=== PATIENT | male | born 1950 | race African-American/Black ===

== ENCOUNTER 2024-05-20 23:47 | Inpatient (IN) | payer OTHER ==
[2024-05-21] MEDS ORDERED: Acetaminophen 650 MG Suppository PR PRN (00:42)
[2024-05-21] MEDS ORDERED: Ondansetron ODT 4 MG TAB PO PRN (00:42)
[2024-05-21] MEDS ORDERED: Ondansetron PF 4 MG/2 ML Vial IVP PRN (00:42)
[2024-05-21] MEDS ORDERED: Acetaminophen 650 MG/20.3 ML UDCUP PO PRN (00:42)
[2024-05-21] MEDS ORDERED: Nitroglycerin 0.4 MG TAB (25 Tab Bottle) SL PRN (02:26)
[2024-05-21] MEDS ORDERED: Glucagon 1 MG/ML KIT IM PRN (02:34)
[2024-05-21] MEDS ORDERED: Dextrose 50% Abboject 50 ML SYRINGE SLOW IVP PRN (02:34)
[2024-05-21] MEDS ORDERED: Dextrose 5% in Water 1,000 ML IV PRN (02:34)
[2024-05-21] MEDS: HYDROcodone/Acetaminophen 5/325 mg Tablet PO PRN (03:09)
[2024-05-21 05:27] LABS: #Basophils 0.03 10x3/uL (0.0-0.2); %Basophils 0.5 % (0.0-1.0); %Eosinophils 2.1 % (0.0-10.0); %Lymphocytes 12.5 % (21.0-51.0); %Monocytes 14.5 % (0.0-10.0); %Neutrophils 70.1 % (42.0-75.0); Hematocrit 31.7 % (42.0-52.0); Hemoglobin 9.5 g/dL (14.0-18.0); Mean Corpuscular Hemoglobin 23.6 pg (27.0-31.0); Mean Corpuscular Volume 78.7 fL (78.0-98.0); Mean Platelet Volume 10.2 fL (7.4-10.4); Platelet Count 287 10x3/uL (130-400); Red Blood Cell (RBC) Count 4.03 mill/uL (4.70-6.10)
[2024-05-21 05:44] LABS: ALT (SGPT) 7 U/L (8-55); AST (SGOT) 11 U/L (5-34); Albumin 3.4 g/dL (3.4-4.8); Alkaline Phosphatase 37 U/L (40-110); Anion Gap 15 mmol/L (10-20); BUN (Urea Nitrogen) 41 mg/dL (8.4-25.7); Bilirubin, Total 0.3 mg/dL (0.2-1.2); Calc. Creatinine Clearance 46 mL/min (70-130); Calcium 9.2 mg/dL (7.8-10.44); Carbon Dioxide 21 mmol/L (23-31); Chloride 108 mmol/L (98-107); Estimated GFR 46; Globulin 3.4 g/dL (2.4-3.5); Glucose 106 mg/dL (83-110); Potassium 4.7 mmol/L (3.5-5.1); Protein, Total 6.8 g/dL (5.8-8.1); Sodium 139 mmol/L (136-145)
[2024-05-21 06:40] LABS: Hemoglobin A1c 7.2 % (4.0-6.0)
[2024-05-21] MEDS ORDERED: Famotidine 20 MG TAB PO SCH (09:00)
[2024-05-21] MEDS: Insulin Regular, Human 100 UNIT/ML 10 ML VIAL SC SCH (10:23)
[2024-05-21] MEDS: Isosorbide Mononitrate 60 MG ER.TAB PO SCH (10:23)
[2024-05-21] MEDS: Docusate 100 MG CAP PO SCH (10:24)
[2024-05-21] MEDS: Gabapentin 300 MG CAP PO SCH (10:24)
[2024-05-21] MEDS: Aspirin 81 mg Enteric Coated Tablet PO SCH (10:24)
[2024-05-21] MEDS: Furosemide 40 MG TAB PO SCH (10:24)
[2024-05-21] MEDS: Lisinopril 2.5 MG TAB PO SCH (10:25)
[2024-05-21] MEDS: Carvedilol 25 MG TAB PO SCH (10:25)
[2024-05-21] MEDS: Amlodipine 10 MG TAB PO SCH (10:25)
[2024-05-21] MEDS: Famotidine/PF 20 mg/2ml Vial SLOW IVP SCH (10:26)
[2024-05-21] MEDS: Famotidine 20 MG TAB PO SCH (10:26)
[2024-05-21] MEDS: Cefepime 1 GM in Sodium Chloride 0.9% 100 ML IVPB SCH (13:23)
[2024-05-21] MEDS: Cefepime 1 GM VIAL ONE (13:24)
[2024-05-21] MEDS: Atorvastatin Calcium 40 MG TAB PO SCH (19:48)
[2024-05-21] MEDS: Fenofibrate 48 MG TAB PO SCH (19:49)
[2024-05-21] MEDS: Terazosin HCl 5 MG CAP PO SCH (19:49)
[2024-05-21] MEDS: metroNIDAZOLE 250 MG TAB PO SCH (19:51)
[2024-05-21] MEDS: Latanoprost 0.005% Ophth Soln 2.5 ml Bottle EA EYE SCH (19:55)
[2024-05-22 08:47] LABS: #Basophils Less than 0.03 10x3/uL (0.0-0.2); %Basophils 0.2 % (0.0-1.0); %Eosinophils 1.7 % (0.0-10.0); %Lymphocytes 13.8 % (21.0-51.0); %Monocytes 15.4 % (0.0-10.0); %Neutrophils 68.7 % (42.0-75.0); Hematocrit 29.2 % (42.0-52.0); Hemoglobin 8.9 g/dL (14.0-18.0); Mean Corpuscular HGB CONC 30.5 g/dL (32.0-36.0); Mean Corpuscular Volume 78.7 fL (78.0-98.0); Mean Platelet Volume 9.5 fL (7.4-10.4); Platelet Count 260 10x3/uL (130-400); RBC Distribution Width 15.9 % (11.5-14.5); Red Blood Cell (RBC) Count 3.71 mill/uL (4.70-6.10)
[2024-05-22] MEDS: Morphine 2 MG/ML VIAL SLOW IVP PRN (08:50)
[2024-05-22 09:05] LABS: Anion Gap 12 mmol/L (10-20); BUN (Urea Nitrogen) 40 mg/dL (8.4-25.7); Calc. Creatinine Clearance 39 mL/min (70-130); Calcium 9.3 mg/dL (7.8-10.44); Carbon Dioxide 24 mmol/L (23-31); Chloride 105 mmol/L (98-107); Estimated GFR 38; Glucose 116 mg/dL (83-110); Potassium 4.2 mmol/L (3.5-5.1); Sodium 137 mmol/L (136-145)
[2024-05-22] MEDS: Insulin Lispro 100 UNIT/ML 10 ML VIAL SC PRN (11:58)
[2024-05-22] MEDS: Gabapentin 100 MG CAP PO SCH (23:39)
[2024-05-23 04:28] LABS: #Basophils Less than 0.03 10x3/uL (0.0-0.2); %Basophils 0.3 % (0.0-1.0); %Eosinophils 2.3 % (0.0-10.0); %Lymphocytes 12.8 % (21.0-51.0); %Monocytes 13.4 % (0.0-10.0); %Neutrophils 70.8 % (42.0-75.0); Hematocrit 27.6 % (42.0-52.0); Hemoglobin 8.3 g/dL (14.0-18.0); Mean Corpuscular HGB CONC 30.1 g/dL (32.0-36.0); Mean Corpuscular Hemoglobin 23.2 pg (27.0-31.0); Mean Corpuscular Volume 77.1 fL (78.0-98.0); Mean Platelet Volume 9.2 fL (7.4-10.4); Platelet Count 243 10x3/uL (130-400); RBC Distribution Width 15.9 % (11.5-14.5); Red Blood Cell (RBC) Count 3.58 mill/uL (4.70-6.10)
[2024-05-23 06:38] LABS: Anion Gap 16 mmol/L (10-20); BUN (Urea Nitrogen) 48 mg/dL (8.4-25.7); Calc. Creatinine Clearance 34 mL/min (70-130); Calcium 9.1 mg/dL (7.8-10.44); Carbon Dioxide 22 mmol/L (23-31); Chloride 104 mmol/L (98-107); Estimated GFR 31; Glucose 118 mg/dL (83-110); Potassium 4.4 mmol/L (3.5-5.1); Sodium 138 mmol/L (136-145)
[2024-05-23 06:39] LABS: CRP,High Sensitivity (Inhouse) 2.98 mg/dL (< or = 0.5)
[2024-05-23] MEDS: Insulin Lispro 100 UNIT/ML 10 ML VIAL SC PRN (21:43)
[2024-05-24 04:13] LABS: #Basophils Less than 0.03 10x3/uL (0.0-0.2); %Basophils 0.3 % (0.0-1.0); %Eosinophils 2.7 % (0.0-10.0); %Lymphocytes 11.5 % (21.0-51.0); %Monocytes 14.7 % (0.0-10.0); %Neutrophils 70.5 % (42.0-75.0); Hematocrit 29.3 % (42.0-52.0); Hemoglobin 8.8 g/dL (14.0-18.0); Mean Corpuscular Hemoglobin 23.2 pg (27.0-31.0); Mean Corpuscular Volume 77.1 fL (78.0-98.0); Mean Platelet Volume 9.8 fL (7.4-10.4); Platelet Count 260 10x3/uL (130-400); RBC Distribution Width 15.9 % (11.5-14.5)
[2024-05-24 04:32] LABS: Anion Gap 15 mmol/L (10-20); BUN (Urea Nitrogen) 53 mg/dL (8.4-25.7); Calc. Creatinine Clearance 32 mL/min (70-130); Calcium 9.3 mg/dL (7.8-10.44); Carbon Dioxide 25 mmol/L (23-31); Chloride 103 mmol/L (98-107); Estimated GFR 29; Glucose 110 mg/dL (83-110); Potassium 4.4 mmol/L (3.5-5.1); Sodium 139 mmol/L (136-145)
[2024-05-24] MEDS: Morphine 4 MG/ML VIAL SLOW IVP PRN (13:27)
[2024-05-24] MEDS: HYDROcodone/Acetaminophen 10/325 mg Tablet PO PRN (17:12)
[2024-05-25 04:02] LABS: #Basophils Less than 0.03 10x3/uL (0.0-0.2); %Basophils 0.3 % (0.0-1.0); %Lymphocytes 14.5 % (21.0-51.0); %Monocytes 14.5 % (0.0-10.0); %Neutrophils 67.4 % (42.0-75.0); Hematocrit 28.3 % (42.0-52.0); Hemoglobin 8.6 g/dL (14.0-18.0); Mean Corpuscular HGB CONC 30.4 g/dL (32.0-36.0); Mean Corpuscular Hemoglobin 24.1 pg (27.0-31.0); Mean Corpuscular Volume 79.3 fL (78.0-98.0); Platelet Count 244 10x3/uL (130-400); RBC Distribution Width 15.9 % (11.5-14.5); Red Blood Cell (RBC) Count 3.57 mill/uL (4.70-6.10)
[2024-05-25 04:28] LABS: Anion Gap 15 mmol/L (10-20); BUN (Urea Nitrogen) 58 mg/dL (8.4-25.7); Calc. Creatinine Clearance 31 mL/min (70-130); Calcium 9.2 mg/dL (7.8-10.44); Carbon Dioxide 25 mmol/L (23-31); Chloride 102 mmol/L (98-107); Estimated GFR 27; Glucose 133 mg/dL (83-110); Potassium 4.6 mmol/L (3.5-5.1); Sodium 137 mmol/L (136-145)
[2024-05-26] MEDS: Acetaminophen/Codeine 30-300mg Tablet PO PRN (11:31)
[2024-05-27 03:58] LABS: #Basophils 0.03 10x3/uL (0.0-0.2); %Basophils 0.5 % (0.0-1.0); %Eosinophils 3.3 % (0.0-10.0); %Lymphocytes 13.7 % (21.0-51.0); %Monocytes 17.9 % (0.0-10.0); %Neutrophils 64.3 % (42.0-75.0); Hematocrit 29.4 % (42.0-52.0); Hemoglobin 8.8 g/dL (14.0-18.0); Mean Corpuscular HGB CONC 29.9 g/dL (32.0-36.0); Mean Corpuscular Hemoglobin 23.3 pg (27.0-31.0); Mean Platelet Volume 10.4 fL (7.4-10.4); Platelet Count 248 10x3/uL (130-400); RBC Distribution Width 15.9 % (11.5-14.5); Red Blood Cell (RBC) Count 3.77 mill/uL (4.70-6.10)
[2024-05-27 04:12] LABS: INR-International Normal Ratio 1.3; Prothrombin Time 16.5 sec (12.0-14.7)
[2024-05-27 04:21] LABS: Anion Gap 16 mmol/L (10-20); BUN (Urea Nitrogen) 61 mg/dL (8.4-25.7); Calc. Creatinine Clearance 30 mL/min (70-130); Calcium 9.2 mg/dL (7.8-10.44); Carbon Dioxide 27 mmol/L (23-31); Chloride 101 mmol/L (98-107); Estimated GFR 27; Glucose 112 mg/dL (83-110); Potassium 5.3 mmol/L (3.5-5.1); Sodium 139 mmol/L (136-145)
[2024-05-27 07:58] LABS: Magnesium 2.5 mg/dL (1.6-2.6)
[2024-05-27] MEDS ORDERED: Lidocaine 1% (PF) 30 ML VIAL ONE (10:16)
[2024-05-27] MEDS ORDERED: Famotidine/PF 20 mg/2ml Vial ONE (10:32)
[2024-05-27] MEDS ORDERED: Cefepime 1 GM VIAL ONE (10:35)
[2024-05-27] MEDS ORDERED: Sodium Chloride 0.9% 100 ML ONE (10:35)
[2024-05-27] MEDS ORDERED: Midazolam HCl 2 mg/2 ml Vial ONE (10:36)
[2024-05-27] MEDS ORDERED: fentaNYL 50 mcg/mL 1 mL Vial ONE (10:36)
[2024-05-27] MEDS ORDERED: PROPOFOL 20 ML ONE ×2 (10:36→11:29)
[2024-05-27] MEDS ORDERED: Ketamine In 0.9 % NaCl 50 MG/5 ML SYRINGE ONE (10:38)
[2024-05-27] MEDS ORDERED: Glycopyrrolate 0.2 MG/ML 5 ML SYRINGE ONE (10:41)
[2024-05-27] MEDS ORDERED: Bupivacaine PF 0.5% 30 ML VIAL ONE (11:05)
[2024-05-27] MEDS ORDERED: Ondansetron PF 4 MG/2 ML Vial ONE (11:22)
[2024-05-27] MEDS ORDERED: Ondansetron HCl/PF 4 MG/2 ML Vial IVP PRN (12:03)
[2024-05-27] MEDS ORDERED: Promethazine HCl 25 MG/ML VIAL IM PRN (12:03)
[2024-05-27] MEDS: Sodium Polystyrene Sulfonate 15 GM (60 mL) BOT PO SCH (13:40)
[2024-05-28 04:44] LABS: #Basophils 0.03 10x3/uL (0.0-0.2); %Basophils 0.6 % (0.0-1.0); %Eosinophils 3.7 % (0.0-10.0); %Lymphocytes 12.5 % (21.0-51.0); %Monocytes 14.6 % (0.0-10.0); %Neutrophils 68.4 % (42.0-75.0); Hematocrit 31.5 % (42.0-52.0); Hemoglobin 9.4 g/dL (14.0-18.0); Mean Corpuscular HGB CONC 29.8 g/dL (32.0-36.0); Mean Corpuscular Hemoglobin 23.5 pg (27.0-31.0); Mean Corpuscular Volume 78.8 fL (78.0-98.0); Mean Platelet Volume 10.6 fL (7.4-10.4); Platelet Count 210 10x3/uL (130-400); RBC Distribution Width 15.9 % (11.5-14.5)
[2024-05-28 05:47] LABS: Anion Gap 16 mmol/L (10-20); BUN (Urea Nitrogen) 57 mg/dL (8.4-25.7); Calc. Creatinine Clearance 28 mL/min (70-130); Carbon Dioxide 27 mmol/L (23-31); Chloride 102 mmol/L (98-107); Estimated GFR 25; Glucose 129 mg/dL (83-110); Magnesium 2.7 mg/dL (1.6-2.6); Potassium 4.5 mmol/L (3.5-5.1); Sodium 140 mmol/L (136-145)
[2024-05-28] MEDS: Senokot S 8.6-50 MG TAB PO SCH (20:19)
[2024-05-29 04:37] LABS: #Basophils Less than 0.03 10x3/uL (0.0-0.2); %Basophils 0.2 % (0.0-1.0); %Eosinophils 1.6 % (0.0-10.0); %Lymphocytes 5.8 % (21.0-51.0); %Monocytes 13.9 % (0.0-10.0); %Neutrophils 78.1 % (42.0-75.0); Hematocrit 30.1 % (42.0-52.0); Hemoglobin 8.9 g/dL (14.0-18.0); Mean Corpuscular HGB CONC 29.6 g/dL (32.0-36.0); Mean Corpuscular Hemoglobin 23.4 pg (27.0-31.0); Mean Platelet Volume 10.9 fL (7.4-10.4); Platelet Count 221 10x3/uL (130-400); RBC Distribution Width 15.9 % (11.5-14.5); Red Blood Cell (RBC) Count 3.81 mill/uL (4.70-6.10)
[2024-05-29 05:12] LABS: Anion Gap 16 mmol/L (10-20); BUN (Urea Nitrogen) 47 mg/dL (8.4-25.7); Calc. Creatinine Clearance 35 mL/min (70-130); Calcium 9.5 mg/dL (7.8-10.44); Carbon Dioxide 22 mmol/L (23-31); Chloride 103 mmol/L (98-107); Estimated GFR 32; Glucose 108 mg/dL (83-110); Magnesium 2.6 mg/dL (1.6-2.6); Potassium 4.7 mmol/L (3.5-5.1); Sodium 136 mmol/L (136-145)
[2024-05-29] MEDS: Heparin 5,000 UNITS/ML VIAL SC SCH (09:20)
[2024-05-30 04:00] LABS: #Basophils 0.03 10x3/uL (0.0-0.2); %Basophils 0.4 % (0.0-1.0); %Eosinophils 1.2 % (0.0-10.0); %Monocytes 11.6 % (0.0-10.0); %Neutrophils 79.5 % (42.0-75.0); Hematocrit 30.1 % (42.0-52.0); Hemoglobin 9.1 g/dL (14.0-18.0); Mean Corpuscular HGB CONC 30.2 g/dL (32.0-36.0); Mean Corpuscular Hemoglobin 23.9 pg (27.0-31.0); Mean Platelet Volume 9.7 fL (7.4-10.4); Platelet Count 203 10x3/uL (130-400); RBC Distribution Width 15.9 % (11.5-14.5); Red Blood Cell (RBC) Count 3.81 mill/uL (4.70-6.10)
[2024-05-30 04:24] LABS: Anion Gap 13 mmol/L (10-20); BUN (Urea Nitrogen) 46 mg/dL (8.4-25.7); Calc. Creatinine Clearance 39 mL/min (70-130); Calcium 9.3 mg/dL (7.8-10.44); Carbon Dioxide 22 mmol/L (23-31); Chloride 107 mmol/L (98-107); Estimated GFR 36; Glucose 128 mg/dL (83-110); Potassium 4.3 mmol/L (3.5-5.1); Sodium 138 mmol/L (136-145)
[2024-06-01] MEDS: Lactulose 20 GM (30 mL) UDCUP PO PRN (12:56)
[2024-06-01] MEDS: Insulin Lispro 100 UNIT/ML 10 ML VIAL SC PRN (18:48)
[2024-06-01] MEDS: Insulin Glargine 30 UNITS/0.3 ML VIAL SC SCH (21:58)
[2024-06-02 05:50] LABS: #Basophils Less than 0.03 10x3/uL (0.0-0.2); %Basophils 0.3 % (0.0-1.0); %Eosinophils 2.1 % (0.0-10.0); %Lymphocytes 7.7 % (21.0-51.0); %Monocytes 12.2 % (0.0-10.0); Hematocrit 28.5 % (42.0-52.0); Hemoglobin 8.5 g/dL (14.0-18.0); Mean Corpuscular HGB CONC 29.8 g/dL (32.0-36.0); Mean Corpuscular Hemoglobin 23.7 pg (27.0-31.0); Mean Corpuscular Volume 79.4 fL (78.0-98.0); Mean Platelet Volume 10.3 fL (7.4-10.4); Platelet Count 249 10x3/uL (130-400); RBC Distribution Width 15.9 % (11.5-14.5); Red Blood Cell (RBC) Count 3.59 mill/uL (4.70-6.10)
[2024-06-02 06:07] LABS: Anion Gap 15 mmol/L (10-20); BUN (Urea Nitrogen) 36 mg/dL (8.4-25.7); Calc. Creatinine Clearance 44 mL/min (70-130); Calcium 9.3 mg/dL (7.8-10.44); Carbon Dioxide 24 mmol/L (23-31); Chloride 108 mmol/L (98-107); Estimated GFR 43; Glucose 120 mg/dL (83-110); Potassium 4.8 mmol/L (3.5-5.1); Sodium 142 mmol/L (136-145)
[2024-06-02] MEDS: Morphine 2 MG/ML VIAL SLOW IVP SCH (13:30)
[2024-06-02] MEDS: Albuterol 200 PUFF INH INH PRN (16:05)
[2024-06-02] MEDS ORDERED: Ipratropium/Albuterol 3 ML NEB NEB PRN (16:17)
[2024-06-02] MEDS: Ipratropium/Albuterol 3 ML NEB NEB SCH ×2 (16:26→19:12)
[2024-06-02 16:48] LABS: Actual Bicarbonate (HCO3a) 22.8 mEq/L (22-28); Base Excess (BEa) -4.6 mEq/L (-2.0 to +3.0); CO2 Tension 52.8 mmHg (35.0-45.0); Calcium, Ionized (arterial) 1.19 mmol/L (1.12-1.30); Carboxyhemoglobin (COHb) 0.3 gm% (0.0-3.0); Hematocrit-ABG 33 % (42.0-52.0); Hemoglobin (Hb) 11.3 g/dL (14.0-18.0); pH, Arterial 7.253 (7.35-7.45)
[2024-06-02] MEDS: Etomidate 40 MG (20 mL) VIAL IVP SCH (16:48)
[2024-06-02 16:49] LABS: O2 Tension (PaO2), arterial 55.2 mmHg (> 70.0); Puncture Site LRA
[2024-06-02] MEDS ORDERED: Ventilator Sedation Protocol 1 EACH FS SCH (16:56)
[2024-06-02] MEDS: Lorazepam 2 MG/ML VIAL SLOW IVP PRN (16:57)
[2024-06-02] MEDS ORDERED: DISCONTINUE PREVIOUS NARCOTIC PAIN MEDICATIONS AND BENZODIAZEPINES FS SCH (17:15)
[2024-06-02] MEDS ORDERED: Fentanyl BOLUS 250 ML IVPB PRN (17:15)
[2024-06-02] MEDS ORDERED: Morphine 2 MG/ML VIAL SLOW IVP PRN (17:15)
[2024-06-02] MEDS ORDERED: Propofol BOLUS 1,000 MG/100 ML VIAL IV PRN (17:15)
[2024-06-02 17:45] LABS: Actual Bicarbonate (HCO3a) 22.2 mEq/L (22-28); Base Excess (BEa) -2.7 mEq/L (-2.0 to +3.0); CO2 Tension 38.7 mmHg (35.0-45.0); Calcium, Ionized (arterial) 1.11 mmol/L (1.12-1.30); Carboxyhemoglobin (COHb) 0.8 gm% (0.0-3.0); Hematocrit-ABG 28 % (42.0-52.0); Hemoglobin (Hb) 9.4 g/dL (14.0-18.0); O2 Tension (PaO2), arterial 71.2 mmHg (> 70.0); Potassium - ABG Lab 4.97 mmol/L (3.70-5.30); Puncture Site RRA; pH, Arterial 7.376 (7.35-7.45)
[2024-06-02 17:46] LABS: ALV-art Gradient 236.925 mmHg (0-20)
[2024-06-02] MEDS: Propofol 1,000 MG/100 ML VIAL IV ONE (17:52)
[2024-06-02] MEDS: Lorazepam 2 MG/ML VIAL ONE (17:52)
[2024-06-02] MEDS: Propofol 1,000 MG/100 ML VIAL IV PRN (17:52)
[2024-06-02] MEDS: methylPREDNISolone Sod Succ/PF 125 MG/2 ML VIAL IVP SCH (18:27)
[2024-06-02] MEDS: Furosemide 40 MG (4 mL) VIAL SLOW IVP SCH (18:29)
[2024-06-02 18:35] LABS: Troponin I 0.029 ng/mL (< 0.028)
[2024-06-02] MEDS: Fentanyl CADD 100 ML IV SCH (19:00)
[2024-06-02] MEDS ORDERED: Ipratropium/Albuterol 3 ML NEB NEB SCH (19:00)
[2024-06-02 20:29] LABS: Troponin I 0.077 ng/mL (< 0.028)
[2024-06-03] MEDS: methylPREDNISolone Sod Succ 40 MG VIAL IVP SCH (08:32)
[2024-06-03 14:07] LABS: #Basophils Less than 0.03 10x3/uL (0.0-0.2); #Eosinphils Less than 0.03 10x3/uL (0.0-0.7); %Basophils 0.1 % (0.0-1.0); %Lymphocytes 3.2 % (21.0-51.0); %Monocytes 5.7 % (0.0-10.0); %Neutrophils 89.8 % (42.0-75.0); Hemoglobin 8.9 g/dL (14.0-18.0); Mean Corpuscular HGB CONC 30.7 g/dL (32.0-36.0); Mean Corpuscular Hemoglobin 23.3 pg (27.0-31.0); Mean Corpuscular Volume 75.9 fL (78.0-98.0); Platelet Count 286 10x3/uL (130-400); RBC Distribution Width 16.3 % (11.5-14.5); Red Blood Cell (RBC) Count 3.82 mill/uL (4.70-6.10)
[2024-06-03 14:16] LABS: ALT (SGPT) Less than 5 U/L (8-55); AST (SGOT) 6 U/L (5-34); Albumin 2.7 g/dL (3.4-4.8); Alkaline Phosphatase 32 U/L (40-110); Anion Gap 14 mmol/L (10-20); BUN (Urea Nitrogen) 46 mg/dL (8.4-25.7); Bilirubin, Total 0.4 mg/dL (0.2-1.2); Calc. Creatinine Clearance 46 mL/min (70-130); Calcium 8.9 mg/dL (7.8-10.44); Carbon Dioxide 19 mmol/L (23-31); Chloride 111 mmol/L (98-107); Estimated GFR 45; Globulin 3.5 g/dL (2.4-3.5); Glucose 258 mg/dL (83-110); Potassium 4.2 mmol/L (3.5-5.1); Protein, Total 6.2 g/dL (5.8-8.1); Sodium 140 mmol/L (136-145)
[2024-06-03] MEDS ORDERED: Ondansetron ODT 4 MG TAB PER TUBE PRN (21:05)
[2024-06-03] MEDS ORDERED: Acetaminophen 650 MG/20.3 ML UDCUP PER TUBE PRN (21:05)
[2024-06-03] MEDS ORDERED: Lactulose 20 GM (30 mL) UDCUP PER TUBE PRN (21:10)
[2024-06-03] MEDS: Atorvastatin Calcium 40 MG TAB PER TUBE SCH (21:34)
[2024-06-03] MEDS: Senokot S 8.6-50 MG TAB PER TUBE SCH (21:34)
[2024-06-03] MEDS: Fenofibrate 48 MG TAB PER TUBE SCH (21:34)
[2024-06-03] MEDS: Gabapentin 300 MG CAP PER TUBE SCH (21:34)
[2024-06-03] MEDS: Terazosin HCl 5 MG CAP PER TUBE SCH (21:35)
[2024-06-04 06:30] LABS: Anion Gap 20 mmol/L (10-20); BUN (Urea Nitrogen) 44 mg/dL (8.4-25.7); Calc. Creatinine Clearance 44 mL/min (70-130); Calcium 9.1 mg/dL (7.8-10.44); Carbon Dioxide 15 mmol/L (23-31); Chloride 110 mmol/L (98-107); Estimated GFR 50; Glucose 178 mg/dL (83-110); Magnesium 2.6 mg/dL (1.6-2.6); Potassium 4.4 mmol/L (3.5-5.1); Sodium 141 mmol/L (136-145)
[2024-06-04 07:22] LABS: Hematocrit 28.4 % (42.0-52.0); Hemoglobin 8.7 g/dL (14.0-18.0); Mean Corpuscular HGB CONC 30.6 g/dL (32.0-36.0); Mean Corpuscular Hemoglobin 24.2 pg (27.0-31.0); Mean Corpuscular Volume 79.1 fL (78.0-98.0); Mean Platelet Volume 10.5 fL (7.4-10.4); Platelet Count 329 10x3/uL (130-400); RBC Distribution Width 16.6 % (11.5-14.5); Red Blood Cell (RBC) Count 3.59 mill/uL (4.70-6.10)
[2024-06-04] MEDS: Isosorbide Mononitrate 20 MG TAB PER TUBE SCH (08:40)
[2024-06-04] MEDS: Aspirin Chewable 81 MG TAB PER TUBE SCH (08:41)
[2024-06-04] MEDS: Carvedilol 25 MG TAB PER TUBE SCH (08:41)
[2024-06-04] MEDS: Famotidine 20 MG TAB PER TUBE SCH (08:41)
[2024-06-04] MEDS: Amlodipine 10 MG TAB PER TUBE SCH (08:41)
[2024-06-04] MEDS ORDERED: Senokot S 8.6-50 MG TAB PER TUBE SCH (09:00)
[2024-06-04 11:34] LABS: Actual Bicarbonate (HCO3a) 23.4 mEq/L (22-28); Base Excess (BEa) 0.1 mEq/L (-2.0 to +3.0); CO2 Tension 33.3 mmHg (35.0-45.0); Calcium, Ionized (arterial) 1.17 mmol/L (1.12-1.30); Carboxyhemoglobin (COHb) 0.3 gm% (0.0-3.0); Hematocrit-ABG 31 % (42.0-52.0); Hemoglobin (Hb) 10.4 g/dL (14.0-18.0); O2 Tension (PaO2), arterial 89.8 mmHg (> 70.0); Potassium - ABG Lab 4.04 mmol/L (3.70-5.30); pH, Arterial 7.465 (7.35-7.45)
[2024-06-04 11:35] LABS: Puncture Site RRA
[2024-06-04 11:36] LABS: ALV-art Gradient 153.775 mmHg (0-20)
[2024-06-04] MEDS ORDERED: HYDROcodone/Acetaminophen 10/325 mg Tablet PO PRN (13:44)
[2024-06-04] MEDS ORDERED: Ondansetron ODT 4 MG TAB PO PRN (14:18)
[2024-06-04] MEDS ORDERED: Lactulose 20 GM (30 mL) UDCUP PO PRN (14:19)
[2024-06-04] MEDS: HYDROcodone/Acetaminophen 10/325 mg Tablet PO PRN (15:16)
[2024-06-04] MEDS: Gabapentin 300 MG CAP PO SCH (15:16)
[2024-06-04] MEDS: Carvedilol 25 MG TAB PO SCH (16:25)
[2024-06-04] MEDS: Senokot S 8.6-50 MG TAB PO SCH (19:39)
[2024-06-04] MEDS: Isosorbide Mononitrate 20 MG TAB PO SCH (21:18)
[2024-06-04] MEDS: Atorvastatin Calcium 40 MG TAB PO SCH (21:18)
[2024-06-04] MEDS: Fenofibrate 48 MG TAB PO SCH (21:18)
[2024-06-04] MEDS: Terazosin HCl 5 MG CAP PO SCH (21:33)
[2024-06-04] MEDS: Acetaminophen 650 MG/20.3 ML UDCUP PO PRN (23:12)
[2024-06-05 05:57] LABS: Hematocrit 32.1 % (42.0-52.0); Hemoglobin 9.6 g/dL (14.0-18.0); Mean Corpuscular HGB CONC 29.9 g/dL (32.0-36.0); Mean Corpuscular Hemoglobin 23.8 pg (27.0-31.0); Mean Corpuscular Volume 79.7 fL (78.0-98.0); Mean Platelet Volume 10.1 fL (7.4-10.4); Platelet Count 316 10x3/uL (130-400); RBC Distribution Width 16.7 % (11.5-14.5); Red Blood Cell (RBC) Count 4.03 mill/uL (4.70-6.10)
[2024-06-05 06:51] LABS: Anion Gap 14 mmol/L (10-20); BUN (Urea Nitrogen) 42 mg/dL (8.4-25.7); Calc. Creatinine Clearance 52 mL/min (70-130); Carbon Dioxide 20 mmol/L (23-31); Chloride 109 mmol/L (98-107); Estimated GFR 61; Glucose 114 mg/dL (83-110); Potassium 4.1 mmol/L (3.5-5.1); Sodium 139 mmol/L (136-145)
[2024-06-05] MEDS: Amlodipine 10 MG TAB PO SCH (08:38)
[2024-06-05] MEDS: Aspirin Chewable 81 MG TAB PO SCH (08:38)
[2024-06-05] MEDS: Famotidine 20 MG TAB PO SCH (08:38)
[2024-06-05] MEDS: Insulin Glargine 30 UNITS/0.3 ML VIAL SC SCH (20:29)
[2024-06-05] MEDS: Morphine 2 MG/ML VIAL SLOW IVP PRN (23:24)
[2024-06-06 04:37] VITALS: BMI 25.0
[2024-06-06] MEDS: Ferrous Gluconate 324 MG TAB PO SCH (09:26)
[2024-06-07] MEDS: Ferrous Gluconate 324 MG TAB PO SCH (09:11)
[2024-06-08 15:27] VITALS: BMI 25.2
[2024-06-12] MEDS: HYDROcodone/Acetaminophen 10/325 mg Tablet PO PRN (22:06)
[2024-06-14 11:47] VITALS: TEMP 98.1
[2024-06-14 21:03] VITALS: BP 125/68
[2024-06-14] MEDS: HYDROcodone/Acetaminophen 10/325 mg Tablet PO PRN (22:48)
== END 2024-06-14 22:55 | DRG 239 ==
LOC: EEVIPCON 23:47 → 2SE 23:47 → SURG B 06-01 11:55 → CCU 06-02 16:47 → T4-B 06-05 12:58
PROVIDERS: ADMIT Student in an Organized Health Care Education/Training Program; ATTEND Internal Medicine
PROC: 0Y6M0Z9 Detachment at Right Foot, Partial 1st Ray, Open Approach (ICD-10-PCS; principal; 2024-05-27)
PROC: 0Y6M0ZB Detachment at Right Foot, Partial 2nd Ray, Open Approach (ICD-10-PCS; 2024-05-27)
PROC: 0Y6M0ZC Detachment at Right Foot, Partial 3rd Ray, Open Approach (ICD-10-PCS; 2024-05-27)
PROC: 0Y6M0ZD Detachment at Right Foot, Partial 4th Ray, Open Approach (ICD-10-PCS; 2024-05-27)
PROC: 0Y6M0ZF Detachment at Right Foot, Partial 5th Ray, Open Approach (ICD-10-PCS; 2024-05-27)
PROC: 0BH17EZ Insertion of Endotracheal Airway into Trachea, Via Natural or Artificial Opening (ICD-10-PCS; 2024-06-02)
PROC: 4A133R1 Monitoring of Arterial Saturation, Peripheral, Percutaneous Approach (ICD-10-PCS; 2024-06-02)
PROC: 5A1945Z Respiratory Ventilation, 24-96 Consecutive Hours (ICD-10-PCS; 2024-06-02)
DX: E11.52 Type 2 diabetes mellitus with diabetic peripheral angiopathy with gangrene (principal); I50.43 Acute on chronic combined systolic (congestive) and diastolic (congestive) heart failure; J96.01 Acute respiratory failure with hypoxia; I96 Gangrene, not elsewhere classified; N18.4 Chronic kidney disease, stage 4 (severe); C83.30 Diffuse large B-cell lymphoma, unspecified site; I13.0 Hypertensive heart and chronic kidney disease with heart failure and stage 1 through stage 4 chronic kidney disease, or unspecified chronic kidney disease; N17.9 Acute kidney failure, unspecified; C22.8 Malignant neoplasm of liver, primary, unspecified as to type; E87.20 Acidosis, unspecified; L03.115 Cellulitis of right lower limb; E11.621 Type 2 diabetes mellitus with foot ulcer; L97.519 Non-pressure chronic ulcer of other part of right foot with unspecified severity; I70.221 Atherosclerosis of native arteries of extremities with rest pain, right leg; E87.5 Hyperkalemia; L08.9 Local infection of the skin and subcutaneous tissue, unspecified; Z53.9 Procedure and treatment not carried out, unspecified reason; S81.801A Unspecified open wound, right lower leg, initial encounter; E11.22 Type 2 diabetes mellitus with diabetic chronic kidney disease; I25.10 Atherosclerotic heart disease of native coronary artery without angina pectoris; D63.1 Anemia in chronic kidney disease; H40.9 Unspecified glaucoma; I25.5 Ischemic cardiomyopathy; N40.0 Benign prostatic hyperplasia without lower urinary tract symptoms; E11.51 Type 2 diabetes mellitus with diabetic peripheral angiopathy without gangrene; Z89.612 Acquired absence of left leg above knee; Z95.1 Presence of aortocoronary bypass graft; Z79.2 Long term (current) use of antibiotics; Z79.899 Other long term (current) drug therapy; Z79.82 Long term (current) use of aspirin; Z79.4 Long term (current) use of insulin; Z98.890 Other specified postprocedural states
CPT/HCPCS: 36415; 36416; 36600; 71045; 78315; 80048; 80053; 82805; 83036; 83605; 83735; 83880; 84484; 85025; 85027; 85610; 86141; 88305; 88311; 93005; 93010; 93306; 93923; 94002; 94003; 94640; 97139; A9503; J0665; J0692; J1644; J1815; J1940; J2001; J2060; J2250; J2270; J2272; J2405; J2704; J2920; J2930; J3010; J3490; J7620; S0028

== ENCOUNTER 2024-12-29 22:49 | Inpatient (IN) | payer OTHER ==
[2024-12-29] MEDS ORDERED: Magnesium 2 GM/50 ML BAG (IN WATER) ONE (23:04)
[2024-12-29] MEDS ORDERED: methylPREDNISolone Sod Succ/PF 125 MG/2 ML VIAL ONE (23:04)
[2024-12-29 23:17] LABS: Actual Bicarbonate (HCO3a) 15.7 mEq/L (22-28); Analyzer IN Cardio ER; Base Excess (BEa) -10.8 mEq/L (-2.0 to +3.0); CO2 Tension 37.3 mmHg (35.0-45.0); Calcium, Ionized (arterial) 1.14 mmol/L (1.12-1.30); Hematocrit-ABG 38 % (42.0-52.0); Hemoglobin (Hb) 12.8 g/dL (14.0-18.0); O2 Tension (PaO2), arterial 151.8 mmHg (> 70.0); Potassium - ABG Lab 5.07 mmol/L (3.70-5.30); pH, Arterial 7.242 (7.35-7.45)
[2024-12-29 23:22] LABS: Puncture Site Left Radial artery
[2024-12-29 23:23] LABS: ALV-art Gradient 514.575 mmHg (0-20)
[2024-12-29 23:28] LABS: #Basophils 0.04 10x3/uL (0.0-0.2); %Basophils 0.2 % (0.0-1.0); %Eosinophils 0.2 % (0.0-10.0); %Lymphocytes 2.4 % (21.0-51.0); %Monocytes 9.2 % (0.0-10.0); %Neutrophils 86.7 % (42.0-75.0); Hematocrit 39.7 % (42.0-52.0); Hemoglobin 11.8 g/dL (14.0-18.0); Mean Corpuscular HGB CONC 29.7 g/dL (32.0-36.0); Mean Corpuscular Volume 80.9 fL (78.0-98.0); Platelet Count 319 10x3/uL (130-400); RBC Distribution Width 20.1 % (11.5-14.5); Red Blood Cell (RBC) Count 4.91 mill/uL (4.70-6.10)
[2024-12-29] MEDS ORDERED: fentaNYL 50 mcg/mL 1 mL Vial ONE (23:30)
[2024-12-29] MEDS ORDERED: Furosemide 40 MG (4 mL) VIAL ONE (23:30)
[2024-12-29] MEDS ORDERED: Sodium Chloride 0.9% 0 ML ONE (23:30)
[2024-12-29] MEDS ORDERED: Fentanyl CADD 100 ML IV SCH (23:30)
[2024-12-29] MEDS ORDERED: Cefepime 2 GM VIAL ONE (23:30)
[2024-12-29] MEDS ORDERED: Albuterol 2.5 MG (3 mL) NEB ONE (23:31)
[2024-12-29 23:44] LABS: INR-International Normal Ratio 1.4; Prothrombin Time 17.5 sec (12.0-14.7)
[2024-12-29 23:50] LABS: ALT (SGPT) 119 U/L (Less than 45); AST (SGOT) 36 U/L (11-34); Albumin 2.8 g/dL (3.1-4.5); Alkaline Phosphatase 76 U/L (40-110); Anion Gap 16 mmol/L (10-20); BUN (Urea Nitrogen) 51 mg/dL (8.4-25.7); Calc. Creatinine Clearance 0 mL/min (70-130); Calcium 7.4 mg/dL (7.8-10.44); Carbon Dioxide 14 mmol/L (23-31); Chloride 112 mmol/L (98-107); Estimated GFR 52; Globulin 2.8 g/dL (2.4-3.5); Glucose 308 mg/dL (83-110); Potassium 5.5 mmol/L (3.5-5.1); Protein, Total 5.6 g/dL (5.8-8.1); Sodium 136 mmol/L (136-145)
[2024-12-29 23:51] LABS: Acetaminophen Less than 10 mcg/mL (Less than 10); Alcohol Less than 10.0 mg/dL (Less than 10); Salicylate Less than 8.0 mg/dL (Less than 8.0)
[2024-12-29 23:52] LABS: D-Dimer Test 12.91 mcg/mL (0.27-0.43); Troponin I 0.055 ng/mL (< 0.028)
[2024-12-30 00:44] LABS: Amphetamine Not Detected (NotDetected); Barbiturates Screen Not Detected (NotDetected); Benzodiazepine Screen Not Detected (NotDetected); Cocaine Metabolite Screen Not Detected (NotDetected); Methadone Not Detected (NotDetected); Methamphetamine Not Detected (NotDetected); Opiate Screen Not Detected (NotDetected); Oxycodone Screen Not Detected (NotDetected); Phencyclidine (PCP) Not Detected (NotDetected); THC/Cannabinoid Screen Not Detected (NotDetected); Tricyclic Screen Not Detected (NotDetected)
[2024-12-30 00:48] LABS: Bacteria/HPF None Seen HPF (None Seen); Bilirubin Negative (Negative); Blood, Urine 3+ (Negative); CAUTI Indications for Culture Alt mental st,lethar; Clarity Turbid (Clear); Glucose, Urine (Dipstick) 30 mg/dL (Negative); Ketone, Urine Negative (Negative); Leukocyte 75 Leu/uL (Negative); Nitrite Negative (Negative); Protein, Urine (Dipstick) 30 mg/dL (Neg-Trace); RBC/HPF Greater than 50 HPF (0-3); Specific Gravity, Urine 1.012 (1.002-1.036); Squamous Epithelial None Seen HPF (0-3); Urobilinogen Normal mg/dL (Less than 2); WBC/HPF 21-50 HPF (0-3)
[2024-12-30 00:49] LABS: Urine Culture Reflex Yes Yes
[2024-12-30] MEDS ORDERED: Ondansetron PF 4 MG/2 ML Vial IVP PRN (01:00)
[2024-12-30] MEDS ORDERED: Ondansetron ODT 4 MG TAB SL PRN (01:00)
[2024-12-30] MEDS ORDERED: Acetaminophen 325 MG TAB PO PRN (01:00)
[2024-12-30] MEDS ORDERED: Glucagon 1 MG/ML KIT IM PRN (01:20)
[2024-12-30] MEDS ORDERED: Dextrose 50% Abboject 50 ML SYRINGE SLOW IVP PRN (01:20)
[2024-12-30] MEDS ORDERED: Dextrose 5% in Water 1,000 ML IV PRN (01:20)
[2024-12-30] MEDS ORDERED: Propofol BOLUS 1,000 MG/100 ML VIAL IV PRN (01:30)
[2024-12-30] MEDS ORDERED: Morphine 2 MG/ML VIAL SLOW IVP PRN (01:30)
[2024-12-30] MEDS ORDERED: Propofol 1,000 MG/100 ML VIAL IV PRN (01:30)
[2024-12-30] MEDS ORDERED: Fentanyl BOLUS 250 ML IVPB PRN (01:30)
[2024-12-30] MEDS ORDERED: Lorazepam 2 MG/ML VIAL SLOW IVP PRN (01:30)
[2024-12-30] MEDS: Ventilator Sedation Protocol 1 EACH FS ONE (01:42)
[2024-12-30] MEDS ORDERED: Ipratropium/Albuterol 3 ML NEB NEB PRN (01:43)
[2024-12-30] MEDS: Vancomycin 1.5 GRAM/300 ML BAG 1.5 GM in Premix 1 BAG IVPB SCH (01:44)
[2024-12-30] MEDS: Insulin Lispro 100 UNIT/ML 10 ML VIAL SC PRN (02:01)
[2024-12-30 02:19] LABS: #Basophils Less than 0.03 10x3/uL (0.0-0.2); #Eosinophils Less than 0.03 10x3/uL (0.0-0.7); %Basophils 0.1 % (0.0-1.0); %Eosinophils 0.1 % (0.0-10.0); %Lymphocytes 2.3 % (21.0-51.0); %Monocytes 4.9 % (0.0-10.0); %Neutrophils 91.9 % (42.0-75.0); Hematocrit 40.3 % (42.0-52.0); Hemoglobin 11.8 g/dL (14.0-18.0); Mean Corpuscular HGB CONC 29.3 g/dL (32.0-36.0); Mean Corpuscular Hemoglobin 23.8 pg (27.0-31.0); Mean Corpuscular Volume 81.3 fL (78.0-98.0); Mean Platelet Volume 9.7 fL (7.4-10.4); Platelet Count 364 10x3/uL (130-400); RBC Distribution Width 19.9 % (11.5-14.5); Red Blood Cell (RBC) Count 4.96 mill/uL (4.70-6.10)
[2024-12-30] MEDS: Sodium Bicarb 50 mEq/50 ML VIAL IVP SCH ×2 (02:19→05:18)
[2024-12-30 02:41] LABS: Actual Bicarbonate (HCO3a) 19.5 mEq/L (22-28); Base Excess (BEa) -6.4 mEq/L (-2.0 to +3.0); CO2 Tension 40.2 mmHg (35.0-45.0); Calcium, Ionized (arterial) 1.11 mmol/L (1.12-1.30); Carboxyhemoglobin (COHb) 1.2 gm% (0.0-3.0); Hematocrit-ABG 38 % (42.0-52.0); Hemoglobin (Hb) 12.9 g/dL (14.0-18.0); O2 Tension (PaO2), arterial 76.4 mmHg (> 70.0); Potassium - ABG Lab 5.62 mmol/L (3.70-5.30); pH, Arterial 7.303 (7.35-7.45)
[2024-12-30 02:42] LABS: Puncture Site Left Radial artery
[2024-12-30 02:49] LABS: Troponin I 0.096 ng/mL (< 0.028)
[2024-12-30 04:36] LABS: ALT (SGPT) 115 U/L (Less than 45); AST (SGOT) 31 U/L (11-34); Albumin 2.9 g/dL (3.1-4.5); Alkaline Phosphatase 66 U/L (40-110); Anion Gap 14 mmol/L (10-20); BUN (Urea Nitrogen) 50 mg/dL (8.4-25.7); Bilirubin, Total 0.9 mg/dL (0.3-1.2); Calc. Creatinine Clearance 42 mL/min (70-130); Calcium 7.4 mg/dL (7.8-10.44); Carbon Dioxide 17 mmol/L (23-31); Chloride 109 mmol/L (98-107); Estimated GFR 50; Globulin 3.1 g/dL (2.4-3.5); Glucose 280 mg/dL (83-110); Potassium 6.3 mmol/L (3.5-5.1); Sodium 134 mmol/L (136-145)
[2024-12-30] MEDS: Calcium Chloride 1 GM/10 ML Abboject SYRINGE IVP SCH (05:18)
[2024-12-30] MEDS: Insulin Regular, Human 100 UNIT/ML 10 ML VIAL IVP SCH (05:19)
[2024-12-30] MEDS: Furosemide 40 MG (4 mL) VIAL SLOW IVP SCH (05:46)
[2024-12-30] MEDS: Haloperidol 1 MG TAB PO SCH ×2 (05:59→08:24)
[2024-12-30 08:16] LABS: Carbamazepine-Tegretol Less than 0.4 ug/mL (4.0-12.0)
[2024-12-30 08:19] LABS: Anion Gap 15 mmol/L (10-20); BUN (Urea Nitrogen) 53 mg/dL (8.4-25.7); Calc. Creatinine Clearance 38 mL/min (70-130); Calcium 8.8 mg/dL (7.8-10.44); Carbon Dioxide 19 mmol/L (23-31); Chloride 110 mmol/L (98-107); Estimated GFR 43; Glucose 133 mg/dL (83-110); Potassium 5.1 mmol/L (3.5-5.1); Sodium 139 mmol/L (136-145)
[2024-12-30] MEDS: Venlafaxine HCl XR 75 MG CAP PO SCH (08:24)
[2024-12-30] MEDS: Pantoprazole 40 MG VIAL IVP SCH (08:24)
[2024-12-30] MEDS: Enoxaparin 40 MG (0.4 mL) SYRINGE SC SCH (08:24)
[2024-12-30] MEDS: Cefepime 2 GM in Sodium Chloride 0.9% 100 ML IVPB SCH (12:18)
[2024-12-30 14:02] LABS: Troponin I 0.188 ng/mL (< 0.028)
[2024-12-30] MEDS ORDERED: Iopamidol 370 76% 100 ML VIAL ONE (14:26)
[2024-12-30 14:41] VITALS: BMI 21.5
[2024-12-30 19:15] LABS: Troponin I 0.162 ng/mL (< 0.028)
[2024-12-30] MEDS: DC Sedation Protocol FS ONE (19:47)
[2024-12-30] MEDS: chlorproMAZINE HCl 50 MG/2 ML AMP IM PRN (21:17)
[2024-12-30] MEDS: Vancomycin 1 GM in Premix 1 BAG IVPB SCH (22:04)
[2024-12-31] MEDS ORDERED: diphenhydrAMINE 25 MG CAP PO SCH (12:00)
[2024-12-31] MEDS ORDERED: Albuterol 200 PUFF INH INH PRN (12:00)
[2024-12-31] MEDS ORDERED: ACETAMINOPHEN 650 MG PO PRN (12:06)
[2024-12-31] MEDS: Aspirin 81 mg Enteric Coated Tablet PO SCH (12:13)
[2024-12-31] MEDS: Insulin NPH Human Isophane 100 UNITS/ML (10 ML VIAL) SC SCH ×2 (12:47→23:15)
[2024-12-31 14:34] LABS: #Basophils Less than 0.03 10x3/uL (0.0-0.2); #Eosinophils Less than 0.03 10x3/uL (0.0-0.7); %Basophils 0.1 % (0.0-1.0); %Eosinophils 0.2 % (0.0-10.0); %Lymphocytes 8.9 % (21.0-51.0); %Monocytes 9.8 % (0.0-10.0); %Neutrophils 80.5 % (42.0-75.0); Hematocrit 38.3 % (42.0-52.0); Hemoglobin 11.5 g/dL (14.0-18.0); Mean Corpuscular Hemoglobin 23.7 pg (27.0-31.0); Mean Platelet Volume 9.8 fL (7.4-10.4); Platelet Count 255 10x3/uL (130-400); RBC Distribution Width 19.9 % (11.5-14.5); Red Blood Cell (RBC) Count 4.85 mill/uL (4.70-6.10)
[2024-12-31] MEDS ORDERED: Acetaminophen 325 MG TAB PO PRN (14:42)
[2024-12-31 14:51] LABS: ALT (SGPT) 98 U/L (Less than 45); AST (SGOT) 46 U/L (11-34); Alkaline Phosphatase 61 U/L (40-110); Anion Gap 17 mmol/L (10-20); BUN (Urea Nitrogen) 45 mg/dL (8.4-25.7); Bilirubin, Total 1.5 mg/dL (0.3-1.2); Calc. Creatinine Clearance 36 mL/min (70-130); Calcium 8.6 mg/dL (7.8-10.44); Carbon Dioxide 23 mmol/L (23-31); Chloride 103 mmol/L (98-107); Estimated GFR 41; Globulin 3.3 g/dL (2.4-3.5); Glucose 153 mg/dL (83-110); Magnesium 2.3 mg/dL (1.6-2.6); Potassium 4.5 mmol/L (3.5-5.1); Protein, Total 6.3 g/dL (5.8-8.1); Sodium 138 mmol/L (136-145)
[2024-12-31] MEDS: diphenhydrAMINE 25 MG CAP PO SCH (20:25)
[2024-12-31] MEDS: Lisinopril 10 MG TAB PO SCH (20:25)
[2024-12-31] MEDS: Atorvastatin Calcium 40 MG TAB PO SCH (20:25)
[2025-01-01 06:04] LABS: #Basophils Less than 0.03 10x3/uL (0.0-0.2); %Basophils 0.1 % (0.0-1.0); %Eosinophils 1.8 % (0.0-10.0); %Lymphocytes 16.5 % (21.0-51.0); %Monocytes 13.4 % (0.0-10.0); %Neutrophils 67.8 % (42.0-75.0); Hematocrit 36.7 % (42.0-52.0); Hemoglobin 10.9 g/dL (14.0-18.0); Mean Corpuscular HGB CONC 29.7 g/dL (32.0-36.0); Mean Corpuscular Hemoglobin 23.2 pg (27.0-31.0); Mean Corpuscular Volume 78.3 fL (78.0-98.0); Mean Platelet Volume 9.9 fL (7.4-10.4); Platelet Count 214 10x3/uL (130-400); RBC Distribution Width 19.8 % (11.5-14.5); Red Blood Cell (RBC) Count 4.69 mill/uL (4.70-6.10)
[2025-01-01 06:30] LABS: ALT (SGPT) 88 U/L (Less than 45); AST (SGOT) 44 U/L (11-34); Albumin 2.7 g/dL (3.1-4.5); Alkaline Phosphatase 53 U/L (40-110); Anion Gap 15 mmol/L (10-20); BUN (Urea Nitrogen) 45 mg/dL (8.4-25.7); Bilirubin, Total 1.5 mg/dL (0.3-1.2); Calc. Creatinine Clearance 34 mL/min (70-130); Calcium 8.4 mg/dL (7.8-10.44); Carbon Dioxide 23 mmol/L (23-31); Chloride 103 mmol/L (98-107); Estimated GFR 41; Globulin 2.9 g/dL (2.4-3.5); Glucose 85 mg/dL (83-110); Potassium 4.6 mmol/L (3.5-5.1); Protein, Total 5.6 g/dL (5.8-8.1); Sodium 136 mmol/L (136-145)
[2025-01-01] MEDS: Aspirin 81 mg Enteric Coated Tablet PO SCH (09:33)
[2025-01-02 07:13] LABS: #Basophils 0.03 10x3/uL (0.0-0.2); %Basophils 0.5 % (0.0-1.0); %Eosinophils 2.7 % (0.0-10.0); %Lymphocytes 14.6 % (21.0-51.0); %Monocytes 17.9 % (0.0-10.0); %Neutrophils 63.5 % (42.0-75.0); Hematocrit 40.9 % (42.0-52.0); Mean Corpuscular HGB CONC 29.3 g/dL (32.0-36.0); Mean Corpuscular Hemoglobin 23.3 pg (27.0-31.0); Mean Corpuscular Volume 79.3 fL (78.0-98.0); Mean Platelet Volume 10.3 fL (7.4-10.4); Platelet Count 243 10x3/uL (130-400); RBC Distribution Width 19.9 % (11.5-14.5); Red Blood Cell (RBC) Count 5.16 mill/uL (4.70-6.10)
[2025-01-02 07:41] LABS: ALT (SGPT) 102 U/L (Less than 45); AST (SGOT) 49 U/L (11-34); Alkaline Phosphatase 62 U/L (40-110); Anion Gap 15 mmol/L (10-20); BUN (Urea Nitrogen) 41 mg/dL (8.4-25.7); Calc. Creatinine Clearance 35 mL/min (70-130); Calcium 8.9 mg/dL (7.8-10.44); Carbon Dioxide 27 mmol/L (23-31); Chloride 100 mmol/L (98-107); Estimated GFR 42; Globulin 3.4 g/dL (2.4-3.5); Glucose 105 mg/dL (83-110); Potassium 4.9 mmol/L (3.5-5.1); Protein, Total 6.4 g/dL (5.8-8.1); Sodium 137 mmol/L (136-145)
[2025-01-02] MEDS ORDERED: Atorvastatin Calcium 20 MG TAB PO SCH (21:00)
[2025-01-03 05:30] LABS: #Basophils Less than 0.03 10x3/uL (0.0-0.2); %Basophils 0.3 % (0.0-1.0); %Eosinophils 2.4 % (0.0-10.0); %Lymphocytes 17.6 % (21.0-51.0); %Monocytes 16.1 % (0.0-10.0); Hematocrit 40.5 % (42.0-52.0); Hemoglobin 11.9 g/dL (14.0-18.0); Mean Corpuscular HGB CONC 29.4 g/dL (32.0-36.0); Mean Corpuscular Hemoglobin 23.4 pg (27.0-31.0); Mean Corpuscular Volume 79.6 fL (78.0-98.0); Mean Platelet Volume 9.5 fL (7.4-10.4); Platelet Count 232 10x3/uL (130-400); RBC Distribution Width 19.7 % (11.5-14.5); Red Blood Cell (RBC) Count 5.09 mill/uL (4.70-6.10)
[2025-01-03 05:49] LABS: ALT (SGPT) 111 U/L (Less than 45); AST (SGOT) 51 U/L (11-34); Alkaline Phosphatase 65 U/L (40-110); Anion Gap 14 mmol/L (10-20); BUN (Urea Nitrogen) 36 mg/dL (8.4-25.7); Bilirubin, Total 0.8 mg/dL (0.3-1.2); Calc. Creatinine Clearance 41 mL/min (70-130); Calcium 8.6 mg/dL (7.8-10.44); Carbon Dioxide 27 mmol/L (23-31); Chloride 102 mmol/L (98-107); Estimated GFR 53; Glucose 70 mg/dL (83-110); Potassium 4.4 mmol/L (3.5-5.1); Sodium 139 mmol/L (136-145)
[2025-01-03] MEDS ORDERED: Dapagliflozin Propanediol 10 MG TAB PO SCH (09:00)
[2025-01-03] MEDS: Dapagliflozin Propanediol 10 MG TAB PO SCH (09:07)
[2025-01-03] MEDS: Pantoprazole 40 MG DR.TAB PO SCH (09:08)
[2025-01-04 05:03] LABS: #Basophils Less than 0.03 10x3/uL (0.0-0.2); %Basophils 0.3 % (0.0-1.0); %Eosinophils 2.4 % (0.0-10.0); %Monocytes 15.2 % (0.0-10.0); %Neutrophils 62.4 % (42.0-75.0); Hemoglobin 12.6 g/dL (14.0-18.0); Mean Corpuscular Hemoglobin 23.5 pg (27.0-31.0); Mean Corpuscular Volume 78.2 fL (78.0-98.0); Mean Platelet Volume 10.4 fL (7.4-10.4); Platelet Count 296 10x3/uL (130-400); Red Blood Cell (RBC) Count 5.37 mill/uL (4.70-6.10)
[2025-01-04 05:34] LABS: ALT (SGPT) 129 U/L (Less than 45); AST (SGOT) 61 U/L (11-34); Albumin 3.1 g/dL (3.1-4.5); Alkaline Phosphatase 66 U/L (40-110); Anion Gap 13 mmol/L (10-20); BUN (Urea Nitrogen) 35 mg/dL (8.4-25.7); Bilirubin, Total 0.7 mg/dL (0.3-1.2); Calc. Creatinine Clearance 36 mL/min (70-130); Calcium 8.8 mg/dL (7.8-10.44); Carbon Dioxide 28 mmol/L (23-31); Chloride 102 mmol/L (98-107); Estimated GFR 45; Globulin 3.1 g/dL (2.4-3.5); Glucose 62 mg/dL (83-110); Potassium 4.3 mmol/L (3.5-5.1); Protein, Total 6.2 g/dL (5.8-8.1); Sodium 139 mmol/L (136-145)
[2025-01-04 09:58] VITALS: BP 97/70; TEMP 97.7
[2025-01-04 11:19] VITALS: BMI 19.8
[2025-01-05] MEDS ORDERED: Furosemide 40 MG TAB PO SCH (07:30)
== END 2025-01-04 16:15 | DRG 208 ==
LOC: ERS 22:49 → EEVIPCON 22:49 → CCU 22:56 → SURG A 12-31 17:14 → MSONC 12-31 22:49
PROVIDERS: ADMIT Family Medicine; ATTEND Family Medicine
PROC: 5A1935Z Respiratory Ventilation, Less than 24 Consecutive Hours (ICD-10-PCS; principal; 2024-12-30)
PROC: 5A09357 Assistance with Respiratory Ventilation, Less than 24 Consecutive Hours, Continuous Positive Airway Pressure (ICD-10-PCS; 2024-12-30)
DX: J96.01 Acute respiratory failure with hypoxia (principal); J81.0 Acute pulmonary edema; I50.23 Acute on chronic systolic (congestive) heart failure; I21.A1 Myocardial infarction type 2; J18.9 Pneumonia, unspecified organism; E87.1 Hypo-osmolality and hyponatremia; D68.9 Coagulation defect, unspecified; E87.20 Acidosis, unspecified; N39.0 Urinary tract infection, site not specified; I13.0 Hypertensive heart and chronic kidney disease with heart failure and stage 1 through stage 4 chronic kidney disease, or unspecified chronic kidney disease; I25.10 Atherosclerotic heart disease of native coronary artery without angina pectoris; E11.22 Type 2 diabetes mellitus with diabetic chronic kidney disease; N18.30 Chronic kidney disease, stage 3 unspecified; Z79.899 Other long term (current) drug therapy; Z98.890 Other specified postprocedural states; E87.5 Hyperkalemia; E11.65 Type 2 diabetes mellitus with hyperglycemia; E78.5 Hyperlipidemia, unspecified; Z95.810 Presence of automatic (implantable) cardiac defibrillator
CPT/HCPCS: 36415; 36416; 36556; 36600; 51702; 70450; 71045; 71275; 80053; 80156; 80306; 80307; 81001; 82140; 82805; 83605; 83735; 83880; 84145; 84484; 85025; 85379; 85610; 85730; 87077; 87081; 87086; 93005; 93306; 94002; 94003; 94640; 94760; 96365; 96367; 96368; 96375; 99292; J0692; J1650; J1815; J1940; J2470; J2919; J3010; J3230; J3370; J3475; J7611; Q9967